=== PATIENT | male | born 1955 | race Caucasian/White ===

== ENCOUNTER 2017-12-07 06:33 | Day surgery (SDC) | payer BC, OTHER ==
[~2017-12-07] VITALS: Ht 180.3 cm; Wt 108.9 kg
[~2017-12-07 06:33] MED LIST: ADVIL200 M1 PO; AUGMENTIN 875-1 EACH PO; GLUCOPHAGE500 MG PO; HYZAAR 50-12.5 T1 EA PO; KLOR-CON 1010 MEQ PO; LIPITOR10 MG PO; MIRAPEX0.5 MG PO; NORCO 5-325 TA1 EACH PO; PAXIL20 MG PO
--- NOTE | 2017-12-07 07:54 | NUR ---
12/07/17 0754 Jada Alves 0750-PATIENT ARRIVED TO PACU ON 2L NC O2 SAT 96% PATIENT AWAKE DROWSY. ABDOMEN SOFT. DOZES BACK TO SLEEP. RR EVEN
--- NOTE | 2017-12-07 09:52 | OR ---
[facility] [address], [place] [address] Signed DATE OF OPERATION: 12/07/2017 SURGEON: Gaye Calvo MD PREOPERATIVE DIAGNOSES: 1. Proximal esophageal dysphagia. 2. Obstructive sleep apnea with CPAP. 3. Remote history of gastroesophageal reflux disease. POSTOPERATIVE DIAGNOSES: 1. [id number]-[id number] gastroduodenitis. 2. Mild irritation, proximal esophagus. PROCEDURE: EGD with CLOtest and biopsies of the bulb and antrum. ESTIMATED BLOOD LOSS: None. INDICATIONS: This is a 62-year-old gentleman, who was asked to see me for proximal esophageal dysphagia. He wears a CPAP mask at night for years with respect to his obstructive sleep apnea. He said in the past, he seemed to have acid reflux. However, more recently he does not feel like he has any acid reflux. He takes no medicine for acid reflux. He does not smoke or drink. He thinks the proximal esophageal dysphagia came several years after he started using the CPAP mask. He was asked to see me for upper endoscopy. In the office, I gave him a pamphlet on upper endoscopy. We looked at that together along with the risks including, but not limited to gas bloating, crampy abdominal pain, bleeding, perforation, requiring surgery, and missed diagnosis. We also discussed the need for IV conscious sedation. He expressed understanding and wished to proceed. DESCRIPTION OF PROCEDURE: Romel was taken into our endoscopy suite and placed in the supine semi-recumbent position. The posterior oropharynx was anesthetized with Hurricaine spray. A bite block was utilized for the case. He was given 9 mg of Versed and 100 mcg of fentanyl to cover the case. The adult gastroscope was introduced and advanced all the way out into the third portion of the duodenum under direct visualization of camera without difficulty. His duodenum was unremarkable. The pyloric channel showed erythematous changes. The same is the stomach. We saw no ulcerations. We took biopsies of the Electronically Signed By: GAYE CALVO MD 12/07/17 0952 PATIENT NAME: ROMEL DENNEY OPERATIVE REPORT DATE OF : 59 REPORT #: [id number] PHYSICIAN: GAYE CALVO MD PCP: Abdifatah RAMIREZ MD REPORT IS CONFIDENTIAL AND NOT TO BE RELEASED WITHOUT AUTHORIZATION [facility] [address], [place] [address] Signed pyloric bulb as well as the antrum for pathologic review. We took a biopsy of the antrum for CLOtest. The rest of the stomach was unremarkable. Upon retroflexion of scope, I really cannot appreciate a hiatal hernia. The scope was withdrawn up through the GE junction, which was compliant without stricture. There were no gastric or esophageal varices. He has very minimal disruption to his Z-line. There was no Christianson's mucosa. No distal esophagitis. The middle esophagus was fine. The very upper esophagus seemed to have a little bit of lymphoplasia and I suspect he may have a little irritation there from his CPAP machine. However, the vocal cords and arytenoids seemed to be fine. After this, the gas was suctioned out and the gastroscope removed. Romel tolerated the procedure quite well. RECOMMENDATIONS: I will see Romel back in my office in 7 to 14 days to review his results. Gaye Calvo MD ALB/MODL /[id number] cc: MD Abdifatah López MD Copies: GAYE CALVO MD, W NORMAN MD ~ Electronically Signed By: GAYE CALVO MD 12/07/17 0952 PATIENT NAME: ROMEL DENNEY OPERATIVE REPORT DATE OF : 59 REPORT #: [id number] PHYSICIAN: GAYE CALVO MD PCP: Abdifatah RAMIREZ MD REPORT IS CONFIDENTIAL AND NOT TO BE RELEASED WITHOUT AUTHORIZATION
== END 2017-12-07 08:52 | disposition home or self-care (01) ==
LOC: DS 06:33
PROVIDERS: Colon & Rectal Surgery
PROC: 0DB78ZX Excision of Stomach, Pylorus, Via Natural or Artificial Opening Endoscopic, Diagnostic (ICD-10-PCS; 2017-12-07)
PROC: 0DB98ZX Excision of Duodenum, Via Natural or Artificial Opening Endoscopic, Diagnostic (ICD-10-PCS; principal; 2017-12-07 06:45)
DX: K29.50 Unspecified chronic gastritis without bleeding (principal); K29.80 Duodenitis without bleeding; G47.33 Obstructive sleep apnea (adult) (pediatric); K21.9 Gastro-esophageal reflux disease without esophagitis; E11.9 Type 2 diabetes mellitus without complications; I10 Essential (primary) hypertension; E78.5 Hyperlipidemia, unspecified; E66.9 Obesity, unspecified; F41.9 Anxiety disorder, unspecified; K58.9 Irritable bowel syndrome, unspecified; Z79.84 Long term (current) use of oral hypoglycemic drugs; Z79.899 Other long term (current) drug therapy; Z99.89 Dependence on other enabling machines and devices; Z68.33 Body mass index [BMI] 33.0-33.9, adult
CPT/HCPCS: 86677; G0500; J2250; J3010; J7120

== ENCOUNTER 2022-01-08 12:32 | Emergency (ER) | payer OTHER, BC ==
[~2022-01-08] VITALS: Ht 180.3 cm; Wt 105.7 kg
[~2022-01-08 12:32] MED LIST changes: +LOSARTAN-HCTZ1 EAC1 PO; +PAROXETINE HCL40 MG PO
[2022-01-08] MEDS ORDERED: CITALOPRAM HBR40 MG PO (13:20)
== END 2022-01-08 15:06 | disposition home or self-care (01) ==
LOC: ED 12:32
DX: T75.89XA Other specified effects of external causes, initial encounter (principal); Z20.822 Contact with and (suspected) exposure to COVID-19; I10 Essential (primary) hypertension; Z85.46 Personal history of malignant neoplasm of prostate; Z79.899 Other long term (current) drug therapy
CPT/HCPCS: 36415; 80053; 80074; 85025; 87502; 99283; C9803; U0003